=== PATIENT | male | born 1995 | race Caucasian/White ===

== ENCOUNTER 2020-07-12 14:28 | Emergency (ER) | payer SELFPAY ==
[~2020-07-12 14:28] MED LIST: XANAX0.5 MG PO
== END 2020-07-12 17:36 | disposition home or self-care (01) ==
LOC: FER 14:28
DX: M79.622 Pain in left upper arm (principal); R20.2 Paresthesia of skin; F17.290 Nicotine dependence, other tobacco product, uncomplicated; Z88.5 Allergy status to narcotic agent; Z98.890 Other specified postprocedural states
CPT/HCPCS: 99283

== ENCOUNTER 2021-09-28 22:24 | Emergency (ER) | payer OTHER ==
[2021-09-28 23:20] LABS: BASOPHIL 0.3 % (0-2); HGB 15.2 g/dl (13.2-18.0); LYMPHOCYTE 5.4 % (15-48); MCHC 33.8 g/dL (32.0-36.0); MCV 91.8 fL (78.0-100.0); MPV 10.1 fL (6.0-9.5); NRBC 0; PLT 254 K/uL (150-400); RDW 13.2 % (11.5-14.0); WBC 10.4 K/uL (4.0-10.5)
[2021-09-28 23:32] LABS: ALBUMIN 4.1 g/dL (3.4-5.0); BILIRUBIN - TOTAL 0.5 mg/dL (0.2-1.0); BUN/CREAT RATIO (CALC) 15.8 RATIO; CREATININE 0.76 mg/dL (0.67-1.17); GLOBULIN (CALCULATION) 3.8 g/dL; TOTAL PROTEIN 7.9 g/dL (6.4-8.2)
[2021-09-29 00:08] LABS: CORONAVIRUS 2019 SARS-COV-2 NEGATIVE (NEGATIVE); INFLUENZA A NAA NEGATIVE (NEGATIVE)
[2021-09-29] MEDS ORDERED: ONDANSETRON ODT4 MG PO (01:06)
[2021-09-29] MEDS ORDERED: PHENERGAN25 M1 PO (01:06)
== END 2021-09-29 01:20 | disposition home or self-care (01) ==
LOC: FER 22:24
PROVIDERS: Emergency Medicine
DX: R11.2 Nausea with vomiting, unspecified (principal); F17.200 Nicotine dependence, unspecified, uncomplicated; Z20.822 Contact with and (suspected) exposure to COVID-19
CPT/HCPCS: 36415; 71045; 80053; 83690; 84145; 85025; J1885; J2405; J7030; U0002